=== PATIENT | male | born 1995 | race Hispanic/Latino ===

== ENCOUNTER 2017-07-14 21:20 | Inpatient (IN) | payer OTHER, SELFPAY ==
[2017-07-14 23:10] LABS: Base Excess-Venous -14.4 mmol/L (-30.0-30.0); Bicarbonate (HCO3v) 12.1 mmol/L (1.0-85.0); CO2 Tension (PvCO2) 30.1 mmHg (41.0-51.0); Calcium, Ionized 1.06 mmol/L (1.12-1.32); Hemoglobin - Calc 15.2 g/dL (12.0-18.0); O2 Tension (PvO2) 50.5 mmHg (35.0-45.0); Potassium 4.8 mmol/L (3.4-4.7); pH (Venous) 7.212 (7.35-7.45); vO2 Saturation-calc 78.2 % (0.0-100.0)
[2017-07-14 23:44] LABS: Band 4 % (5-11); Hemoglobin 14.9 g/dL (14.0-18.0); Lymphocytes 14 % (21-51); MDiff Complete? YES; Mean Corpuscular HGB CONC 35.1 g/dL (32.0-36.0); Mean Corpuscular Hemoglobin 32.4 pg (27.0-31.0); Mean Corpuscular Volume 92.4 fl (80.0-94.0); Mean Platelet Volume 8.7 fL (7.4-10.4); Monocytes 9 % (0-10); Neutrophil 73 % (42-75); PLT Morphology Comment Appears Adequate; Platelet Count 344 thou/uL (130-400); RBC Distribution Width 11.5 % (11.5-14.5); Red Blood Cell (RBC) Count 4.58 mill/uL (4.70-6.10); White Blood Cell (WBC) Count 20.1 thou/uL (4.8-10.8)
[2017-07-14] MEDS ORDERED: D5 1/2 NS w/20 mEq KCL 1,000 ML ONE (23:45)
--- NOTE | 2017-07-15 00:04 | PDOC.EVN ---
Event Note - Event Note Event Note: Attending H&P I personally evaluated the patient and discussed the management with Dr. Buck. I have reviewed he written H&P and it is repeated by me. I agree with the History, Examination, Assessment and Plan documented above with any addition or exceptions noted below. Mr Kennedy has known DM type I. He has been non complaint with his insulin regimen and drinking alcohol and using meth and cocaine. IV fluid resuscitation, Insulin, and electrolyte correction per protocol ordered. GI prophylaxis and DVT prophylaxis ordered. Zofran for nausea ordered.
[2017-07-15] MEDS: D5 1/2 NS w/20 mEq KCL 1,000 ML IV SCH ×2 (00:45→03:55)
[2017-07-15] MEDS ORDERED: CCU Electrolyte Replacement 1 EACH IVPB ONE (00:47)
[2017-07-15] MEDS ORDERED: D5 1/2 NS w/20 mEq KCL 1,000 ML IV PRN (00:47)
[2017-07-15] MEDS ORDERED: Sodium Chloride 0.9% 1,000 ML IV PRN ×4 (00:47)
[2017-07-15] MEDS ORDERED: NS 0.9% w/ 20 MEQ KCL 1,000 ML IV PRN ×2 (00:47)
[2017-07-15] MEDS ORDERED: Dextrose 5 %-0.45 % NaCl 1,000 ML IV PRN ×2 (00:47→06:27)
[2017-07-15] MEDS ORDERED: Ondansetron HCl/PF 4 MG/2 ML Vial IVP PRN (00:47)
[2017-07-15 00:51] VITALS: BMI 23.2
[2017-07-15] MEDS ORDERED: Potassium Chloride 20 MEQ TAB PO PRN (00:55)
[2017-07-15] MEDS ORDERED: Potassium Phosphate 15 MMOL in Sodium Chloride 0.9% 250 ML 250 ML IV PRN (00:55)
[2017-07-15] MEDS ORDERED: CCU ELECTROLYTE REPLACEMENT PROTOCOL FS PRN (00:55)
[2017-07-15] MEDS ORDERED: Potassium Chloride 40 MEQ in Premix Bag 1 BAG IVPB PRN (00:55)
[2017-07-15] MEDS ORDERED: Potassium Phosphate 12 MMOL in Sodium Chloride 0.9% 250 ML 250 ML IV PRN (00:55)
[2017-07-15] MEDS ORDERED: Magnesium 2 GM/NS 0.9% 100 ML 2 GM in Premix Bag 1 BAG IVPB PRN (00:55)
[2017-07-15] MEDS ORDERED: Magnesium Oxide 400 MG TAB PO PRN ×2 (00:55)
[2017-07-15] MEDS ORDERED: Potassium Chloride 40 MEQ in Sodium Chloride 0.9% 250 ML 250 ML IVPB PRN (00:55)
[2017-07-15] MEDS ORDERED: Potassium Phosphate 9 MMOL in Sodium Chloride 0.9% 100 ML IVPB PRN (00:55)
[2017-07-15 01:36] LABS: Anion Gap 17 mmol/L (10-20); BUN (Urea Nitrogen) 17 mg/dL (8.9-20.6); Calc. Creatinine Clearance 80 mL/min (70-130); Calcium 8.6 mg/dL (7.8-10.44); Carbon Dioxide 17 mmol/L (22-29); Chloride 105 mmol/L (98-107); Estimated GFR-MDRD 72; Glucose 243 mg/dL (70-105); Potassium 4.8 mmol/L (3.5-5.1); Sodium 134 mmol/L (136-145)
[2017-07-15 03:56] LABS: Lactic Acid 1.3 mmol/L (0.5-2.2)
[2017-07-15 03:59] LABS: Anion Gap 12 mmol/L (10-20); BUN (Urea Nitrogen) 16 mg/dL (8.9-20.6); Calc. Creatinine Clearance 90 mL/min (70-130); Calcium 8.7 mg/dL (7.8-10.44); Carbon Dioxide 19 mmol/L (22-29); Chloride 106 mmol/L (98-107); Estimated GFR-MDRD 82; Glucose 224 mg/dL (70-105); Potassium 4.1 mmol/L (3.5-5.1); Sodium 133 mmol/L (136-145)
--- NOTE | 2017-07-15 04:01 | HP-2 ---
TIME AND DATE OF SERVICE: 2315 hours on 07/14/2017. CODE STATUS: FULL CODE. PRIMARY CARE PHYSICIAN: Michelle scanlon. ATTENDING: Dr. Nance RESIDENT: Alberto Buck M.D. HISTORIAN: Patient. CHIEF COMPLAINT: Abdominal pain, nausea and vomiting. HISTORY OF PRESENT ILLNESS: Cabrera Kennedy is a 21-year-old male with past medical history of insulin-de pendent type 1 diabetes mellitus, who presents as a transfer from [facility] for diabetic ketoac idosis. Last night the patient was drinking alcohol with friends and today, at the [facility], his UDS was positive for methamphetamines and cocaine. The patient states that he did not knowingly take these drugs. He states that his friends must have put it in his beer. The patient did not admi nistered his insulin last night and he woke up with sharp epigastric pain this morning as well as alexia sea and vomiting. One of his friends took him to the [facility], where his blood glucose was 70 0. At that time, his pH was 7.06, pO2 was 122 and pCO2 was less than 19.4. His lactic acid was 4.3. CK was 96 and troponin less than 0.1. His UA was significant for ketones greater than 160. His in itial anion gap was 43. The patient states that he has not been checking his blood sugar over the 2 months or so because he lost his glucometer. In the ER, the patient received Novolin and D5 christopher f normal saline with KCl at 250 mL an hour. PAST MEDICAL HISTORY: Type 1 diabetes mellitus. PAST SURGICAL HISTORY: None. ALLERGIES: No known drug allergies. MEDICATIONS: 1. NovoLog 12 units subcu t.i.d. with meals. 2. Levemir 30 units subcu at night. FAMILY HISTORY: Noncontributory. SOCIAL HISTORY: The patient endorsed alcohol use, but denied knowingly taking any drugs and denied s moking. REVIEW OF SYSTEMS: Twelve point review of systems including general, eyes, ENT, respiratory, CV, GI, , skin, musculoskeletal, neuro and psych were all reviewed and were negative, unless otherwise sta jaycee in the HPI. The patient in addition endorsed blurry vision this morning. PHYSICAL EXAMINATION: VITAL SIGNS: Blood pressure 143/83, pulse 128, respiratory rate 16, temperature 99.6, pulse ox 99% o n room air, current weight 55.7 kilograms. GENERAL: The patient is alert and oriented x4, no acute distress, well-developed, well-nourished, an d appropriately interactive; however, he appears uncomfortable. HEENT: Pupils equal, round, reactive to light and accommodation. Extraocular muscles intact. Conju nctiva within normal limits; however, the sclerae was injected. ENT: Tympanic membranes pearly hua without bulging or erythema. Nasal mucosa and oropharynx within normal limits. NECK: Supple, without lymphadenopathy or thyromegaly. CARDIOVASCULAR: The patient was tachycardic, but no murmurs or gallops were noted. RESPIRATORY: Normal effort, no retractions. LUNG: Clear to auscultation bilaterally. SKIN: Warm and dry without cyanosis or lesions. ABDOMEN: Soft. There is epigastric tenderness to palpation, no rebound, no guarding. Bowel sounds normoactive. No masses or distention. EXTREMITIES: No clubbing, cyanosis or pitting edema. MUSCULOSKELETAL: Structure and tone within normal limits. Full range of motion. NEUROLOGIC: No focal deficits. Sensation within normal limits. PSYCHIATRIC: Appropriate, however, the patient did lack insight. LABORATORY DATA: Performed at [facility], lactic acid 4.3. White blood cell count 20.1, hemoglob in 14.9, hematocrit 42.3, platelets 344. VBG showed pH of 7.212 and EKG showed sinus tachycardia wit h no T-wave abnormalities. ASSESSMENT AND PLAN: Cabrera Kennedy is a 21-year-old male with past medical history of insulin-dependent type 1 diabetes mellitus, who presented in diabetic ketoacidosis. 1. Diabetic ketoacidosis. Admit to CU. Cause likely secondary to medication noncompliance second chad to binge drinking and drug use. We will continue diabetic ketoacidosis protocol and transition t o subcutaneous home insulin regimen once blood sugars are less than 200. Anion gap is less than 12 a nd pH is greater than 7.3. We will continue to monitor electrolytes and anion gap as well as Accu- eks per protocol. 2. Lactic acidosis secondary to #1. Trend lactic acid. 3. Nausea and vomiting. IV Zofran. 4. Diet: N.p.o. 5. Activity: Ad [place]. 6. Code status: FULL CODE. DISPOSITION AND LENGTH OF HOSPITAL STAY: 2 days. Symptomatic medication will be provided. History, physical exam as well as management discussed with Dr. Nance.
[2017-07-15 05:43] LABS: Actual Bicarbonate (HCO3v) 21 mEq/L (22-26); Base Excess -3.1 mEq/L (0 (+/- 2.5)); Hematocrit-VBG 40.3 % (39-49); Hemoglobin (Hb) 13.3 g/dL (13.2-17.3); Potassium - ABG Lab 3.6 mmol/L (3.70-5.30); Sodium 135.1 mmol/L (133-146); pH (venous) 7.39 (7.35-7.45)
[2017-07-15 05:44] LABS: Calcium, Ionized 1.13 mmol/L (1.16-1.32); Chloride (ABG LAB) 103 mmol/L (98-106)
[2017-07-15] MEDS ORDERED: Insulin Detemir 100 UNITS/ML 15 UNITS in Pre-Filled Syringe 1 EACH SC SCH ×2 (06:30→21:00)
[2017-07-15] MEDS ORDERED: Lidocaine 2% Viscous Solution 10 ML, Aluminum & Magnesium Hydroxide 30 ML SSW SCH ×2 (06:30)
[2017-07-15] MEDS ORDERED: Pantoprazole 40 MG VIAL IVP SCH (06:30)
--- NOTE | 2017-07-15 07:55 | PDOC.FM ---
- Subjective Subjective: Patient reports doing better overnight regarding dizziness. Denies N/V, SOB. Has been having right sided chest pain that is worse with drinking water and palpation. - Objective MAR Reviewed: Yes Vital Signs & Weight: Vital Signs (12 hours) Temp Pulse Resp BP Pulse Ox 07/15/17 07:36 98.7 F 91 15 100 07/15/17 07:00 98.7 F 91 15 111/65 100 07/15/17 04:00 98.1 F 99 18 116/60 100 07/15/17 02:00 99.3 F 112 H 18 99 07/15/17 00:50 99.3 F 112 H 18 116/60 100 Weight Weight 61.371 kg I&O: 07/14/17 07/15/17 07/16/17 06:59 06:59 06:59 Intake Total 1330 Output Total 400 Balance 930 Result Diagrams: 07/14/17 22:50 07/15/17 03:23 <Shahid Rod M - Last Filed: 07/15/17 07:52> - Objective Vital Signs & Weight: Vital Signs (12 hours) Temp Pulse Resp BP Pulse Ox 07/15/17 11:00 98.4 F 109 H 15 111/63 99 07/15/17 07:36 98.7 F 91 15 100 07/15/17 07:00 98.7 F 91 15 111/65 100 07/15/17 04:00 98.1 F 99 18 116/60 100 07/15/17 02:00 99.3 F 112 H 18 99 Weight Weight 61.371 kg I&O: 07/14/17 07/15/17 07/16/17 06:59 06:59 06:59 Intake Total 1330 240 Output Total 400 Balance 930 240 Result Diagrams: 07/14/17 22:50 07/15/17 03:23 <Patrick Hou - Last Filed: 07/15/17 12:56> Phys Exam - Physical Examination Constitutional: NAD HEENT: moist MMs Neck: full ROM Respiratory: no wheezing, clear to auscultation bilateral Cardiovascular: RRR, no significant murmur Gastrointestinal: soft diffusely tender to palpation Musculoskeletal: no edema, pulses present Neurological: normal sensation, moves all 4 limbs Psychiatric: normal affect, A&O x 3 <Shahid Rod - Last Filed: 07/15/17 07:52> Dx/Plan (1) Diabetic ketoacidosis Code(s): E13.10 - OTH DIABETES MELLITUS WITH KETOACIDOSIS WITHOUT COMA Status : Acute Plan: pH improved to normal range, anion gap currently 8 accuchecks: 155, 128, 129 ok to advance diet as tolerated and continue to monitor labs if morning labs continue to improve, we can space out labs and start home regimen to confirm patient is stable on regimen also possibly transfer to floor later today vs tomorrow morning (2) Polysubstance abuse Code(s): F19.10 - OTHER PSYCHOACTIVE SUBSTANCE ABUSE, UNCOMPLICATED Status: Acute Plan: counseled on discontinued use (3) Alcohol abuse Code(s): F10.10 - ALCOHOL ABUSE, UNCOMPLICATED Status: Acute Plan: counseled on cessation (4) Lactic acidosis Code(s): E87.2 - ACIDOSIS Status: Resolved Plan: resolved, continue to monitor (5) Diabetes mellitus type 1 Status: Acute Plan: home regimen: levemir 30u qHS and novolog 12u tid-wm counseled on compliance of medications (6) Noncompliance with medication regimen Code(s): Z91.14 - PATIENT'S OTHER NONCOMPLIANCE WITH MEDICATION REGIMEN Status : Acute <Shahid Rod - Last Filed: 07/15/17 07:52> Attending Addendum - Attending Addendum I personally evaluated the patient and discussed the management with Dr. Rod. I agree with and repeated the History, Examination, Assessment and Plan documented above with any addition or exceptions noted below. Pt doing ok this. Some stomach discomfort but no n/v/f/c/cp/sob. RRR s M CTAB s w/r/r/increased WOB BS+, NTTP on my exam Gap closed, transition to PO + SQ insulin DVT/GI ppx <Patrick Hou - Last Filed: 07/15/17 12:56>
[2017-07-15] MEDS: HumaLOG 300 UNITS/3 ML VIAL SC SCH ×3 (08:12→17:35)
[2017-07-15 09:21] LABS: Hemoglobin A1c 10.3 % (4.0-6.0)
[2017-07-15] MEDS ORDERED: Acetaminophen 325 MG TAB PO PRN (11:19)
[2017-07-15 16:27] LABS: Anion Gap 12 mmol/L (10-20); BUN (Urea Nitrogen) 10 mg/dL (8.9-20.6); Calc. Creatinine Clearance 126 mL/min (70-130); Calcium 8.3 mg/dL (7.8-10.44); Carbon Dioxide 19 mmol/L (22-29); Chloride 107 mmol/L (98-107); Estimated GFR-MDRD Greater than 90; Glucose 77 mg/dL (70-105); Potassium 3.6 mmol/L (3.5-5.1); Sodium 134 mmol/L (136-145)
--- NOTE | 2017-07-15 21:13 | CON ---
DATE OF CONSULTATION: 07/15/2017 Mr. Kennedy is a 21-year-old male. He said he stopped taking his insulin so he could democrat. He presented and was admitted early this morning. His complaints were nausea and vomiting. Multiple drugs positive on his drug screen. He is extremely hyperglycemic and volume contracted when he was admitted. He says he is dramatically better. PAST MEDICAL HISTORY: Remarkable for type 1 diabetes. ALLERGIES: He has no drug allergies. He is on no medicines other than insulin. REVIEW OF SYSTEMS: 10-point review of systems otherwise negative. FAMILY HISTORY: Negative for lung disease at an early age. SOCIAL HISTORY: Non-smoker, nondrinker. He was drinking. Denies using cocaine or amphetamines. They were on his drug screen, says somebody must have put them in his beer. Twelve point review of systems otherwise negative. PHYSICAL EXAMINATION: GENERAL: In no distress, lying flat in bed. He is afebrile all day today. VITAL SIGNS: His heart rate is in the 90s, respiratory rate is in the teens, oximetry is 99% on room air, blood pressure 114/52. HEENT: Pupils are equal. Sclerae is anicteric. Extraocular movements are full. NECK: Supple. No lymphadenopathy. LUNGS: Clear. HEART: Regular rhythm. S1 and S2 are normal. ABDOMEN: Soft and nontender. EXTREMITIES: Without clubbing, cyanosis, or edema. LABORATORY DATA: White count 20, hemoglobin 14.9, platelets 344. Sodium 133, potassium 4.1, chloride 106, bicarb 19, BUN 16, creatinine 1.1. Blood gas done at 10:52 last night 7.21, CO2 of 30, pO2 of 50. IMPRESSION: 1. Diabetic ketoacidosis secondary to medical noncompliance, resolving. 2. Alcohol use. 3. Drug use. I explained to him that he will live very long if he continues on this path and it is imperative that he take care of himself and not drink or abuse drugs in the setting of type 1 diabetes. His family was there for this conversation. This is a 50-minute consult, greater than 50% of the time was spent coordinating care on the Unit. RITU
[2017-07-16 04:35] LABS: Anion Gap 9 mmol/L (10-20); BUN (Urea Nitrogen) 8 mg/dL (8.9-20.6); Calc. Creatinine Clearance 139 mL/min (70-130); Calcium 8.6 mg/dL (7.8-10.44); Carbon Dioxide 26 mmol/L (22-29); Chloride 104 mmol/L (98-107); Estimated GFR-MDRD Greater than 90; Glucose 143 mg/dL (70-105); Potassium 3.4 mmol/L (3.5-5.1); Sodium 136 mmol/L (136-145)
[2017-07-16] MEDS ORDERED: Potassium Chloride 20 MEQ TAB PO SCH (07:15)
--- NOTE | 2017-07-16 07:58 | PDOC.FM ---
- Subjective Subjective: Patient reports doing much better this morning. Abd pain has improved. No CP, SOB, N/V. Orders were put in yesterday to transfer to medical floor, awaiting bed. As monitors were being taken off, there was concern for aflutter so EKG was ordered which showed sinus tach. - Objective MAR Reviewed: Yes Vital Signs & Weight: Vital Signs (12 hours) Temp Pulse Resp BP Pulse Ox 07/16/17 07:43 98.0 F 75 20 119/70 100 07/16/17 07:35 98.0 F 89 16 100 07/16/17 04:00 98.0 F 89 16 118/75 100 07/16/17 00:00 98.4 F 80 16 124/66 100 07/15/17 20:00 97.7 F 104 H 16 100 Weight Weight 61.371 kg I&O: 07/15/17 07/16/17 07/17/17 06:59 06:59 06:59 Intake Total 1330 1080 Output Total 400 850 Balance 930 230 Result Diagrams: 07/14/17 22:50 07/16/17 03:59 <Shahid Rod - Last Filed: 07/16/17 07:55> - Objective Vital Signs & Weight: Vital Signs (12 hours) Temp Pulse Resp BP Pulse Ox 07/16/17 12:00 98.5 F 94 20 131/78 96 07/16/17 07:43 98.0 F 75 20 119/70 100 07/16/17 07:35 98.0 F 89 16 100 07/16/17 04:00 98.0 F 89 16 118/75 100 Weight Weight 61.371 kg I&O: 07/15/17 07/16/17 07/17/17 06:59 06:59 06:59 Intake Total 1330 1080 240 Output Total 400 850 Balance 930 230 240 Result Diagrams: 07/16/17 03:59 07/16/17 11:49 <Patrick Hou - Last Filed: 07/16/17 13:32> Phys Exam - Physical Examination Constitutional: NAD HEENT: PERRLA, moist MMs Neck: supple, full ROM Respiratory: no wheezing, clear to auscultation bilateral Cardiovascular: RRR, no significant murmur Gastrointestinal: soft, positive bowel sounds Musculoskeletal: no edema, pulses present Neurological: normal sensation, moves all 4 limbs Psychiatric: normal affect, A&O x 3 Skin: no rash, normal turgor <Shahid Rod - Last Filed: 07/16/17 07:55> Dx/Plan (1) Diabetic ketoacidosis Code(s): E13.10 - OTH DIABETES MELLITUS WITH KETOACIDOSIS WITHOUT COMA Status : Acute Plan: gap closed yesterday continue with consistent carb diet (2) Polysubstance abuse Code(s): F19.10 - OTHER PSYCHOACTIVE SUBSTANCE ABUSE, UNCOMPLICATED Status: Acute Plan: counseled on discontinued use (3) Alcohol abuse Code(s): F10.10 - ALCOHOL ABUSE, UNCOMPLICATED Status: Acute Plan: counseled on cessation (4) Lactic acidosis Code(s): E87.2 - ACIDOSIS Status: Resolved Plan: resolved, continue to monitor (5) Diabetes mellitus type 1 Status: Acute Plan: home regimen: levemir 30u qHS and novolog 12u tid-wm counseled on compliance of medications titrating basal and mealtime insulin as he had some episodes yesterday where glucose was in the 70s (6) Noncompliance with medication regimen Code(s): Z91.14 - PATIENT'S OTHER NONCOMPLIANCE WITH MEDICATION REGIMEN Status : Acute - Plan Plan: likely ok to d/c later today <Shahid Rod - Last Filed: 07/16/17 07:55> Attending Addendum - Attending Addendum I personally evaluated the patient and discussed the management with Dr. Rod. I agree with and repeated the History, Examination, Assessment and Plan documented above with any addition or exceptions noted below. Gap closed, symptoms resolved, tolerating PO. Adjust insulin for slight hypoglycemia. Follow up with PCP. Warnings discussed and patient voices understanding, including return precautions. <Patrick Hou - Last Filed: 07/16/17 13:32>
[2017-07-16] MEDS ORDERED: Lidocaine 2% Viscous Solution 20 ML, Aluminum & Magnesium Hydroxide 30 ML, Donnatal Eli... SSW SCH ×3 (08:00)
[2017-07-16 08:15] LABS: #Eosinphils 0.1 thou/uL (0.0-0.7); #Lymphocytes 2.4 thou/uL (1.20-3.40); #Monocytes 0.7 thou/uL (0.11-0.59); #Neutrophils 3.8 thou/uL (1.40-6.50); %Basophils 0.6 % (0.0-1.0); %Eosinophils 1.3 % (0.0-10.0); %Lymphocytes 33.8 % (21.0-51.0); %Neutrophils 54.2 % (42.0-75.0); Mean Corpuscular HGB CONC 33.3 g/dL (32.0-36.0); Mean Corpuscular Hemoglobin 31.8 pg (27.0-31.0); Mean Corpuscular Volume 95.3 fl (80.0-94.0); Mean Platelet Volume 8.7 fL (7.4-10.4); Platelet Count 250 thou/uL (130-400); RBC Distribution Width 11.8 % (11.5-14.5); White Blood Cell (WBC) Count 7.1 thou/uL (4.8-10.8)
[2017-07-16] MEDS: HumaLOG 300 UNITS/3 ML VIAL SC SCH ×2 (08:35→12:22)
[2017-07-16] MEDS ORDERED: Insulin Detemir 100 UNITS/ML 15 UNITS in Pre-Filled Syringe 1 EACH SC SCH (09:00)
[2017-07-16 12:04] VITALS: BP 131/78; TEMP 98.5
[2017-07-16 12:26] LABS: Potassium 3.6 mmol/L (3.5-5.1)
--- NOTE | 2017-07-16 20:36 | PRG ---
DATE OF SERVICE: 07/16/2017 SUBJECTIVE: Cabrera Kennedy is stable overnight. He has had no more nausea and vomiting since he feels b ack to normal. OBJECTIVE: VITAL SIGNS: His vital signs are stable. LUNGS: His lungs are clear. HEART: Regular rhythm. ABDOMEN: Nontender. IMPRESSION AND PLAN: Diabetic ketoacidosis and hyperglycemia secondary to "partying" and noncomplian ce with insulin. I have again discussed the downstream implications. I have explained to him that hussain norton would not have friends partying with him when he has no legs or he is on dialysis. Hopefully, I ma de my point. He will be discharged home today.
--- NOTE | 2017-07-17 06:54 | DIS-2 ---
DATE OF ADMISSION: 07/15/2017 DATE OF DISCHARGE: 07/16/2017 RESIDENT: Shahid Rod D.O. ADMITTING ATTENDING: Mt Nance M.D. DISCHARGE ATTENDING: Patrick Hou MD CONSULTS: None. PROCEDURES: None. PRIMARY DIAGNOSES: 1. Diabetic ketoacidosis. 2. Type 1 diabetes. 3. Lactic acidosis. SECONDARY DIAGNOSES: 1. Polysubstance abuse. 2. Alcohol abuse. 3. Noncompliance with medication regimen. DISCHARGE MEDICATIONS: 1. NovoLog 8 units subcutaneous t.i.d. with meals. 2. Levemir 30 units subcutaneous at bedtime. DISCONTINUED MEDICATIONS: None. HISTORY OF PRESENT ILLNESS AND HOSPITAL COURSE: The patient is a 21-year-old male, who presented to the ER with nausea and vomiting after a 24-hour history of non-administration of insulin as well as a night over partying, which patient endorsed alcohol. However, patient's UDS was positive for metham phetamine as well as cocaine, which patient denied. At outside ER, the patient presented at [facility]. The patient had number of lab abnormalities including pH of 7.06, pO2 of 122, and pCO2 of less than 19.4 as well as a gap of 43 and blood sugar greater than 700. Patient was started on insulin d rip and fluids. Patient was transferred to [facility] for further care. Patient at [facility] was found to have white count of 20.1. VBG of 7.21/30.1/50.5 and potassium of 4.1, sodium of 133 , chloride of 106, carbon dioxide of 19, for an anion gap of 8, glucose at that time was 224, so pyeton ent had a mild pseudohyponatremia at that time. Creatinine at that time was 1.11. Fluid resuscitati on was continued and lactic acid improved to 1.3 soon after admission. Earlier that morning, patient 's nausea and vomiting had stopped and patient had blood sugars in the 120s range; therefore, patient was restarted on a p.o. diet and advanced as tolerated. Accu-Cheks were continued throughout the da y and insulin was titrated accordingly. On date of discharge, patient's potassium was 3.4 and was re placed to increase up to 3.6. Also, patient reports that he did not take insulin the day before presentation; however, he reports c omplaints otherwise and checkups every 3 months at the same [facility]. Patient reports that he has been complaint however hemoglobin A1c was 10.3. Therefore, patient was counseled on appropriate use and checking of blood sugar levels as well as keeping a log to take 2 appointments. DISPOSITION: Stable. DISCHARGE INSTRUCTIONS: 1. Location: Home. 2. Diet: Consistent carb, diabetic diet. 3. Activity: As tolerated. 4. Followup: With [facility] in the next 7 days.
== END 2017-07-16 13:09 | disposition home or self-care (01) | DRG 638 ==
LOC: ERS 21:20 → IMCU/EMU 07-15 00:39
PROVIDERS: ADMIT Family Medicine; ATTEND Family Medicine
DX: E10.10 Type 1 diabetes mellitus with ketoacidosis without coma (principal); E87.2 Acidosis; F14.10 Cocaine abuse, uncomplicated; F15.10 Other stimulant abuse, uncomplicated; Z79.4 Long term (current) use of insulin; Z91.14 Patient's other noncompliance with medication regimen; F10.10 Alcohol abuse, uncomplicated
CPT/HCPCS: 36415; 36416; 80048; 82330; 82435; 82803; 82805; 83036; 83605; 83690; 84132; 84295; 85025; 93005; 93010; 94760; 96365; 96366; 96368; C9113; J1815; J7050

== ENCOUNTER 2020-07-18 16:44 | Inpatient (IN) | payer OTHER, SELFPAY ==
[2020-07-18] MEDS ORDERED: INSULIN REGULAR IN 0.9 % NACL 100 UNIT/100 ML BAG ONE (18:07)
[2020-07-18] MEDS ORDERED: Ketamine 50 MG/ML (10ML VIAL) ONE (18:15)
[2020-07-18 18:29] LABS: ALT (SGPT) 71 U/L (8-55); AST (SGOT) 28 U/L (5-34); Albumin 4.6 g/dL (3.5-5.0); Alkaline Phosphatase 111 U/L (40-110); Anion Gap 24 mmol/L (10-20); BUN (Urea Nitrogen) 20 mg/dL (8.9-20.6); Bilirubin, Total 0.7 mg/dL (0.2-1.2); Calc. Creatinine Clearance 0 mL/min (70-130); Calcium 9.2 mg/dL (7.8-10.44); Carbon Dioxide 10 mmol/L (22-29); Chloride 110 mmol/L (98-107); Globulin 3.4 g/dL (2.4-3.5); Glucose 218 mg/dL (70-105); Magnesium 2.4 mg/dL (1.6-2.6); Phosphorus 1.9 mg/dL (2.3-4.7); Potassium 4.9 mmol/L (3.5-5.1); Sodium 139 mmol/L (136-145)
[2020-07-18] MEDS ORDERED: D5 1/2 NS w/20 mEq KCL 1,000 ML IV SCH (19:15)
[2020-07-18] MEDS ORDERED: Dextrose 50% Abboject 50 ML SYRINGE ONE ×2 (19:25→20:04)
[2020-07-18] MEDS ORDERED: D5 1/2 NS w/20 mEq KCL 1,000 ML ONE ×2 (20:06→22:22)
[2020-07-18] MEDS ORDERED: NS 0.9% w/ 20 MEQ KCL 1,000 ML IV PRN ×2 (20:48)
[2020-07-18] MEDS ORDERED: Sodium Chloride 0.9% 1,000 ML IV PRN ×4 (20:48)
[2020-07-18] MEDS ORDERED: Electrolyte Replacement Protocol 1 EACH IVPB ONE (20:48)
[2020-07-18] MEDS ORDERED: Dextrose 5 %-0.45 % NaCl 1,000 ML IV PRN (20:48)
[2020-07-18] MEDS ORDERED: Ondansetron PF 4 MG/2 ML Vial IVP PRN (20:56)
[2020-07-18] MEDS ORDERED: HUMULIN R 100 UNITS in Sodium Chloride 0.9% 100 ML IVPB SCH (21:00)
[2020-07-18] MEDS ORDERED: Electrolyte Replacement Protocol 1 EACH FS SCH (21:00)
--- NOTE | 2020-07-18 21:06 | PDOC.HHP ---
Hospitalist HPI Nausea and vomiting History of Present Illness: This a 24-year-old male patient with a history of type 1 diabetes mellitus Who presents with nausea and vomiting. Patient notes that he had a drink of tequila a day after he started having nausea and vomiting. He vomited several times[facility]ed at [facility]. There history glucose was 630. He was given 2 g cefepime 10 units insulin 4 mg Zofran and started on 2 L normal saline. He was transferred here for higher level care. At presentation his vitals were BP 142/95, pulse 118, respiratory 30 saturation 97% on room air. Temperature was 99.1. Labs showed creatinine of 1.69, bicarb of 10 anion gap 19. CBC done at [facility] cannot pull through on account of downtime over there. Chest x-ray showed dense focal opacity in left base suggest left lower lobe consolidation/collapse. Less also elevation of the left hemidiaphragm. Short- term follow-up reimaging advised. He was started on DKA protocol Hospitalist team consulted for admission Allergies/Adverse Reactions: Allergy/AdvReac Type Severity Reaction Status Date / Time No Known Drug Allergies Allergy Verified 07/14/17 22:09 Home Medications: Medication Instructions Recorded Confirmed Type Levemir Flexpen [Levemir FlexPen] 30 units SC HS 07/15/17 07/15/17 History Insulin Aspart [NovoLOG FlexPen] 8 units SC TID-WM #0 07/16/17 07/15/17 Rx Past History: PMHx: Diabetes mellitus PSHx: None FHx: None Social: Lives with family. Occasional alcohol drinking. No smoke or illicit drug use Hospitalist HPI ROS Constitutional: reports: weakness, malaise. denies: fever, chills, sweats Respiratory: reports: cough, dry. denies: shortness of breath, hemoptysis, SOB with excertion Cardiovascular: denies: chest pain, palpitations, orthopnea, paroxysmal noc. dyspnea Gastrointestinal: denies: nausea, vomiting, abdominal pain, diarrhea Genitourinary: reports: frequency. denies: dysuria, incontinence, hematuria Neurological: denies: weakness, numbness, incoordination, change in speech All other systems reviewed; all pertinent +/- noted in HPI/Subj Hospitalist Exam General Appearance: awake alert Eye: PERRL, anicteric sclera ENT: normocephalic atraumatic Heart: RRR, no murmur, no gallops, no rubs Respiratory: CTAB, no wheezes, no rales, no ronchi Gastrointestinal: soft, non-tender, non-distended, normal bowel sounds Extremities: no cyanosis, no clubbing, no edema Skin: normal turgor Neurological: cranial nerve grossly intact, no weakness, no focal deficits Psychiatric: normal affect, normal behavior, A&O x 3 Hospitalist Results Result Diagrams: 07/18/20 17:15 Lab results: Laboratory Last Values Sodium 139 mmol/L (136-145) 07/18/20 17:15 Potassium 4.9 mmol/L (3.5-5.1) 07/18/20 17:15 Chloride 110 mmol/L (98-107) H 07/18/20 17:15 Carbon Dioxide 10 mmol/L (22-29) L 07/18/20 17:15 Anion Gap 24 mmol/L (10-20) H 07/18/20 17:15 BUN 20 mg/dL (8.9-20.6) 07/18/20 17:15 Creatinine 1.69 mg/dL (0.7-1.3) H 07/18/20 17:15 Estimated GFR (MDRD) 49 07/18/20 17:15 Glucose 218 mg/dL (70-105) H 07/18/20 17:15 POC Glucose 207 mg/dL (70-100) H 07/18/20 19:56 Calcium 9.2 mg/dL (7.8-10.44) 07/18/20 17:15 Phosphorus 1.9 mg/dL (2.3-4.7) L 07/18/20 17:15 Magnesium 2.4 mg/dL (1.6-2.6) 07/18/20 17:15 Total Bilirubin 0.7 mg/dL (0.2-1.2) 07/18/20 17:15 AST 28 U/L (5-34) 07/18/20 17:15 ALT 71 U/L (8-55) H 07/18/20 17:15 Alkaline Phosphatase 111 U/L (40-110) H 07/18/20 17:15 Serum Total Protein 8.0 g/dL (6.0-8.3) 07/18/20 17:15 Albumin 4.6 g/dL (3.5-5.0) 07/18/20 17:15 Globulin 3.4 g/dL (2.4-3.5) 07/18/20 17:15 Albumin/Globulin Ratio 1.4 g/dL (1.2-2.2) 07/18/20 17:15 Hospitalist H&P A/P Plan: 34-year-old male patient history of diabetes mellitus presenting with DKA probably triggered by pneumonia. DKA Likely triggered pneumonia/alcohol consumption Continue on DKA protocol Monitor magnesium phosphorus Transition as needed Monitoring IMCU. Pneumonia Received cefepime prior to transfer We will continue once ceftriaxone/azithromycin Will require follow-up chest x-ray on discharge. Nausea and vomiting Plan ondansetron HUGO Creatinine elevated to 1.6 Probably prerenalfrom nausea vomiting Continue hydration DKA protocol BMP in a.m. Avoid nephrotoxic agents Alcohol abuse Patient apparently abuses alcoholnoted on last admission. Counseled on cessation. VT prophylaxisLovenox Procedures
[2020-07-18] MEDS ORDERED: Ondansetron ODT 4 MG TAB PO PRN (21:17)
[2020-07-18] MEDS ORDERED: Insulin Regular 300 UNITS/3 ML VIAL ONE (22:08)
[2020-07-18 22:31] LABS: #Lymphocytes 0.9 thou/uL (1.20-3.40); #Monocytes 0.9 thou/uL (0.11-0.59); #Neutrophils 9.8 thou/uL (1.40-6.50); %Basophils 0.3 % (0.0-1.0); %Lymphocytes 7.4 % (21.0-51.0); %Monocytes 7.9 % (0.0-10.0); %Neutrophils 84.4 % (42.0-75.0); Hemoglobin 15.2 g/dL (14.0-18.0); Mean Corpuscular Hemoglobin 31.2 pg (27.0-31.0); Mean Corpuscular Volume 91.8 fL (78.0-98.0); Mean Platelet Volume 9.3 fL (7.4-10.4); Platelet Count 244 thou/uL (130-400); RBC Distribution Width 11.9 % (11.5-14.5); Red Blood Cell (RBC) Count 4.88 mill/uL (4.70-6.10); White Blood Cell (WBC) Count 11.6 thou/uL (4.8-10.8)
[2020-07-18 22:49] LABS: Anion Gap 21 mmol/L (10-20); BUN (Urea Nitrogen) 17 mg/dL (8.9-20.6); Calc. Creatinine Clearance 0 mL/min (70-130); Calcium 8.3 mg/dL (7.8-10.44); Chloride 107 mmol/L (98-107); Glucose 423 mg/dL (70-105); Magnesium 1.8 mg/dL (1.6-2.6); Potassium 4.6 mmol/L (3.5-5.1); Sodium 131 mmol/L (136-145)
[2020-07-18 22:54] LABS: Carbon Dioxide 8 mmol/L (22-29)
[2020-07-18] MEDS ORDERED: cefTRIAXone\\ROCEPHIN 1 GM in Sodium Chloride 0.9% 100 ML IVPB SCH (23:00)
[2020-07-18] MEDS ORDERED: Azithromycin 500 MG in Sodium Chloride 0.9% 250 ML 250 ML IVPB SCH (23:59)
[2020-07-19 00:13] LABS: Phosphorus 1.4 mg/dL (2.3-4.7)
[2020-07-19] MEDS: D5 1/2 NS w/20 mEq KCL 1,000 ML IV PRN ×2 (00:41→04:35)
[2020-07-19] MEDS ORDERED: Magnesium 2 GM/50 ML 2 GM in Premix Bag 1 BAG IVPB SCH (00:45)
[2020-07-19] MEDS: PHOS-NAK 1 PKT PACK PO SCH ×4 (01:00→11:53)
[2020-07-19 01:48] LABS: Anion Gap 13 mmol/L (10-20); BUN (Urea Nitrogen) 13 mg/dL (8.9-20.6); Calc. Creatinine Clearance 73 mL/min (70-130); Calcium 8.2 mg/dL (7.8-10.44); Carbon Dioxide 13 mmol/L (22-29); Chloride 108 mmol/L (98-107); Glucose 315 mg/dL (70-105); Potassium 3.7 mmol/L (3.5-5.1); Sodium 130 mmol/L (136-145)
[2020-07-19 03:52] LABS: #Lymphocytes 1.8 thou/uL (1.20-3.40); #Monocytes 1.3 thou/uL (0.11-0.59); #Neutrophils 7.9 thou/uL (1.40-6.50); %Basophils 0.2 % (0.0-1.0); %Lymphocytes 16.3 % (21.0-51.0); %Neutrophils 71.5 % (42.0-75.0); Hemoglobin 14.8 g/dL (14.0-18.0); Mean Corpuscular HGB CONC 34.7 g/dL (32.0-36.0); Mean Corpuscular Hemoglobin 31.2 pg (27.0-31.0); Mean Corpuscular Volume 89.9 fL (78.0-98.0); Mean Platelet Volume 8.7 fL (7.4-10.4); Platelet Count 224 thou/uL (130-400); RBC Distribution Width 11.9 % (11.5-14.5); Red Blood Cell (RBC) Count 4.74 mill/uL (4.70-6.10); White Blood Cell (WBC) Count 11.1 thou/uL (4.8-10.8)
[2020-07-19 04:13] LABS: Anion Gap 11 mmol/L (10-20); BUN (Urea Nitrogen) 10 mg/dL (8.9-20.6); Calc. Creatinine Clearance 85 mL/min (70-130); Calcium 8.4 mg/dL (7.8-10.44); Carbon Dioxide 16 mmol/L (22-29); Chloride 108 mmol/L (98-107); Glucose 196 mg/dL (70-105); Potassium 3.5 mmol/L (3.5-5.1); Sodium 131 mmol/L (136-145)
[2020-07-19 05:13] VITALS: BMI 139.1
[2020-07-19 06:29] LABS: Magnesium 2.2 mg/dL (1.6-2.6); Phosphorus Less than 1.0 mg/dL (2.3-4.7)
[2020-07-19] MEDS ORDERED: Potassium Phosphate 22 MMOL in Sodium Chloride 0.9% 250 ML 250 ML IVPB SCH (06:45)
[2020-07-19] MEDS ORDERED: Dextrose 50% Abboject 50 ML SYRINGE SLOW IVP PRN (07:41)
[2020-07-19] MEDS ORDERED: Dextrose 5% in Water 1,000 ML IV PRN (07:41)
[2020-07-19] MEDS ORDERED: Insulin Glargine 15 UNITS in Pre-Filled Syringe 1 EACH SC SCH (07:45)
[2020-07-19] MEDS: Potassium Chloride 20 MEQ in Premix Bag 1 BAG IVPB SCH ×2 (07:49→14:28)
[2020-07-19] MEDS: Thiamine 100 MG TAB PO SCH (08:51)
[2020-07-19] MEDS: Multivit, Therapeutic 1 TAB PO SCH (08:51)
[2020-07-19] MEDS: Folic Acid 1 MG TAB PO SCH (08:52)
[2020-07-19] MEDS: 1/2 NS w/KCL 20 mEq 1,000 ML IV SCH ×3 (08:52→21:21)
[2020-07-19] MEDS ORDERED: Enoxaparin Sodium 40 MG/0.4 ML SYRINGE SC SCH ×2 (09:00→21:00)
[2020-07-19] MEDS: Insulin Regular 300 UNITS/3 ML VIAL SC PRN ×4 (09:00→21:13)
[2020-07-19] MEDS ORDERED: FLU VACC QS2020-21(6MOS UP)/PF 60 MCG/0.5 ML SYRINGE IM ONE (09:00)
[2020-07-19] MEDS ORDERED: Acetaminophen 325 MG TAB PO PRN (09:20)
[2020-07-19] MEDS ORDERED: traMADol HCl 50 MG TAB PO PRN (09:21)
--- NOTE | 2020-07-19 10:27 | RAD ---
XR Chest Pa Lat STANDARD HISTORY: Abnormality noted on portable chest exam done yesterday. COMPARISON: Chest study of 07/18/[address] examination of 11/01/2012. FINDINGS: Size is within normal limits. The density in the left base is related to the elevated left hemidiaphragm. No mass is identified. No infiltrative lung process. IMPRESSION: The density in the left base is related to an elevated left hemidiaphragm there is no ass ociated consolidation or mass.
[2020-07-19] MEDS ORDERED: Mag-Al 1200 mg/1200 mg/30 ML UDCUP PO PRN (11:13)
[2020-07-19] MEDS ORDERED: Calcium Carbonate 500 MG ChewTAB PO PRN (11:13)
[2020-07-19] MEDS: pyridOXINE 50 MG (B6) TAB PO SCH (11:53)
--- NOTE | 2020-07-19 15:28 | PDOC.HOSPP ---
- Subjective Encounter Date: 07/19/20 Encounter Time: 09:00 Subjective: Patient seen and examined for diabetic ketoacidosis. Denies any nausea or vomiting. Symptomatically feels much better. - Objective Vital Signs & Weight: Vital Signs (12 hours) Temp Pulse Resp BP Pulse Ox 07/19/20 11:58 98.6 F 100 20 145/96 H 100 07/19/20 08:00 99.6 F 100 Weight Weight 137 lb 12.623 oz Most Recent Monitor Data Heart Rate from ECG 109 NIBP 142/87 NIBP BP-Mean 105 Respiration from ECG 31 SpO2 100 I&O: 07/18/20 07/19/20 07/20/20 06:59 06:59 06:59 Intake Total 3895.7 1592 Output Total 1600 0 Balance 2295.7 1592 Result Diagrams: 07/19/20 03:23 07/19/20 03:23 Additional Labs: Accuchecks 07/19/20 07/19/20 07/19/20 12:01 07:24 06:38 POC Glucose 222 H 158 H 140 H 07/19/20 07/19/20 07/19/20 05:45 04:41 03:26 POC Glucose 127 H 150 H 184 H 07/19/20 07/19/20 07/19/20 02:43 01:59 00:49 POC Glucose 211 H 236 H 318 H 07/18/20 07/18/20 07/18/20 23:43 22:04 21:14 POC Glucose 315 H 373 H 324 H 07/18/20 07/18/20 19:56 18:38 POC Glucose 207 H 123 H Abnormal Lab Results - Last 48 hrs 07/18/20 17:15: Chloride 110 H, Carbon Dioxide 10 L, Anion Gap 24 H, Creatinine 1.69 H, Phosphorus 1.9 L, ALT 71 H, Alkaline Phosphatase 111 H 07/18/20 22:04: WBC 11.6 H, MCH 31.2 H, Neutrophils % 84.4 H, Lymphocytes % 7.4 L, Neutrophils # 9.8 H, Lymphocytes # 0.9 L, Monocytes # 0.9 H 07/18/20 22:09: Sodium 131 L, Carbon Dioxide 8 L*, Anion Gap 21 H, Creatinine 1.50 H 07/18/20 22:09: Phosphorus 1.4 L 07/19/20 01:01: Sodium 130 L, Chloride 108 H, Carbon Dioxide 13 L, Creatinine 1.36 H 07/19/20 03:23: Sodium 131 L, Chloride 108 H, Carbon Dioxide 16 L 07/19/20 03:23: WBC 11.1 H, MCH 31.2 H, Lymphocytes % 16.3 L, Monocytes % 12.0 H, Neutrophils # 7.9 H, Monocytes # 1.3 H 07/19/20 03:23: Phosphorus Less than 1.0 L Microbiology - Entire Visit 07/18/20 22:09 Venous blood - Right Hand Blood Culture - Preliminary Specimen has been received and culture in progress. No Growth to date. 07/18/20 22:04 Venous blood - Right Arm Blood Culture - Preliminary Specimen has been received and culture in progress. No Growth to date. Radiology Reviewed by me: Yes (Chest x-rayPA/lateralno infiltrate) EKG Reviewed by me: Yes (Sinus rhythm on telemetry) Hospitalist ROS - Review of Systems Respiratory: denies: cough, dry, shortness of breath, hemoptysis, SOB with excertion, pleuritic pain, sputum, wheezing, other Cardiovascular: denies: chest pain, palpitations, orthopnea, paroxysmal noc. dyspnea, edema, light headedness, other - Medication Medications: Active Medications Generic Name Dose Route Start Last Admin Trade Name Freq PRN Reason Stop Dose Admin Calcium Carbonate 1,000 mg 07/19/20 11:13 07/19/20 11:53 Calcium Carbonate 500 Mg Chewtab PO 1,000 mg Q4H PRN Administration Heartburn or Indigestion Folic Acid 1 mg 07/19/20 09:00 07/19/20 08:52 Folic Acid 1 Mg Tab PO 1 mg DAILY VISHAL Administration Potassium Chloride/Sodium Chloride 1,000 mls @ 125 mls/hr 07/19/20 07:45 07/19/20 14:28 1/2 Ns W/Kcl 20 Meq IV 1,000 mls .Q8H VISHAL Administration Insulin Human Regular 0 units 07/19/20 07:41 07/19/20 12:15 Insulin Regular 300 Units/3 Ml Vial SC 4 unit .MODERATE SLIDING SC PRN Administration Moderate Correctional Scale Multivitamins 1 tab 07/19/20 09:00 07/19/20 08:51 Multivit, Therapeutic 1 Tab PO 1 tab DAILY VISHAL Administration Pyridoxine HCl 50 mg 07/19/20 09:00 07/19/20 11:53 Pyridoxine 50 Mg (B6) Tab PO 50 mg DAILY VISHAL Administration Thiamine HCl 100 mg 07/19/20 09:00 07/19/20 08:51 Thiamine 100 Mg Tab PO 100 mg DAILY VISHAL Administration Hospitalist Exam Vitals: Vital Signs (12 hours) Temp Pulse Resp BP Pulse Ox 07/19/20 11:58 98.6 F 100 20 145/96 H 100 07/19/20 08:00 99.6 F 100 Weight Weight 137 lb 12.623 oz Most Recent Monitor Data Heart Rate from ECG 109 NIBP 142/87 NIBP BP-Mean 105 Respiration from ECG 31 SpO2 100 General Appearance: awake alert ENT: normocephalic atraumatic, no oropharyngeal lesions Neck: supple, symmetric, no JVD Heart: RRR, no gallops, no rubs, normal peripheral pulses Respiratory: no wheezes, no ronchi, normal chest expansion, no tachypnea Gastrointestinal: soft, non-distended, normal bowel sounds, no guarding, no rigidity Extremities: no cyanosis Neurological: no new deficit Musculoskeletal: normal tone, normal strength, no muscle wasting Psychiatric: normal affect, A&O x 3 Hosp A/P (1) Chronic alcoholism Code(s): F10.20 - ALCOHOL DEPENDENCE, UNCOMPLICATED Status: Acute (2) Hyperkalemia Code(s): E87.5 - HYPERKALEMIA Status: Acute (3) Diabetic ketoacidosis Code(s): E13.10 - OTH DIABETES MELLITUS WITH KETOACIDOSIS WITHOUT COMA Status: Acute (4) Noncompliance with medication regimen Code(s): Z91.14 - PATIENT'S OTHER NONCOMPLIANCE WITH MEDICATION REGIMEN Status: Acute (5) Polysubstance abuse Code(s): F19.10 - OTHER PSYCHOACTIVE SUBSTANCE ABUSE, UNCOMPLICATED Status: Acute (6) HUGO (acute kidney injury) Code(s): N17.9 - ACUTE KIDNEY FAILURE, UNSPECIFIED Status: Acute (7) Diabetes mellitus type 1 Status: Acute (8) GERD (gastroesophageal reflux disease) Code(s): K21.9 - GASTRO-ESOPHAGEAL REFLUX DISEASE WITHOUT ESOPHAGITIS Status: Acute - Plan 24-year-old male with diabetes mellitus type 1 presented to emergency room on 07/18 with nausea and vomiting. His work-up was consistent with diabetic ketoacidosis. His creatinine on admission was 2.36 with bicarbonate of less than 8 with potassium 6.8, sodium 123, lactic acid 3.6 and phosphorus of 1.9. He was admitted to the intermediate care unit and was started on insulin drip along with IV fluids per DKA protocol. His anion gap gradually improved with above treatment. Insulin drip was sounds transitioned to subcutaneous insulin. Patient has been out of his insulin due to financial reason. Insulin regimen will be converted to 70/30 due to financial reason. He was extensively counseled to be compliant with insulin regimen. His electrolytes were replaced as well. He was transferred out of intermediate care unit on 07/19. Patient had a portable chest x-ray in the emergency room that was concerning for left lobe consolidation. He was started on empiric antibiotics. Next morning he had PA and lateral x-ray that was negative for pneumonia. The density was due to left hemidiaphragm elevation. Antibiotics have been discontinued. Plan: Change IV insulin drip to subcutaneous Lantus. Will transition to NPH due to financial cost. Replace magnesium, phosphorus and potassium. Patient was advised to ambulate in the hallway. We will recheck labs in a.m. Discontinue DKA protocol. Discontinue antibiotics since pneumonia is ruled out. DKA was precipitated by medication noncompliance. Will add PPI as well as symptomatic treatment for heartburn. Patient was counseled on lifestyle modification as well as medication adherence
[2020-07-19] MEDS ORDERED: HumuLIN 70/30 (300 UNITS/3 ML VIAL) SC SCH (16:30)
[2020-07-20] MEDS: Insulin Regular 300 UNITS/3 ML VIAL SC PRN ×2 (05:43→13:12)
[2020-07-20] MEDS: 1/2 NS w/KCL 20 mEq 1,000 ML IV SCH (05:43)
[2020-07-20 06:37] LABS: Anion Gap 14 mmol/L (10-20); BUN (Urea Nitrogen) 4 mg/dL (8.9-20.6); Calc. Creatinine Clearance 127 mL/min (70-130); Calcium 8.6 mg/dL (7.8-10.44); Carbon Dioxide 22 mmol/L (22-29); Chloride 103 mmol/L (98-107); Glucose 141 mg/dL (70-105); Magnesium 1.7 mg/dL (1.6-2.6); Phosphorus 2.5 mg/dL (2.3-4.7); Potassium 3.5 mmol/L (3.5-5.1); Sodium 135 mmol/L (136-145)
[2020-07-20] MEDS ORDERED: HumuLIN 70/30 (300 UNITS/3 ML VIAL) SC SCH (07:30)
[2020-07-20] MEDS ORDERED: Insulin Glargine 20 UNITS in Pre-Filled Syringe 1 EACH SC SCH (09:00)
[2020-07-20] MEDS ORDERED: Magnesium 2 GM/50 ML 2 GM in Premix Bag 1 BAG IVPB SCH (09:45)
[2020-07-20] MEDS: Folic Acid 1 MG TAB PO SCH (10:28)
[2020-07-20] MEDS: pyridOXINE 50 MG (B6) TAB PO SCH (10:28)
[2020-07-20] MEDS: Multivit, Therapeutic 1 TAB PO SCH (10:28)
[2020-07-20] MEDS: Thiamine 100 MG TAB PO SCH (10:28)
[2020-07-20 12:12] VITALS: BP 143/84; TEMP 98.5
[2020-07-20] MEDS ORDERED: Potassium Chloride 20 MEQ TAB PO SCH (12:45)
--- NOTE | 2020-07-20 18:37 | PDOC.DS.DS ---
Provider Date of Admission: 07/18/20 19:35 Date of Discharge: 07/20/20 Admitting Provider: Gigi Gill MD Consultations: None Primary Care Physician: NO PCP PROVIDER Course Resuscitation Status: 07/18/20 20:48 Resuscitation Status Routine Resuscitation Status: FULL: Full Resuscitation Lab Results: 07/19/20 03:23 07/20/20 06:03 Abnormal Lab Results - Last 48 hrs 07/18/20 22:04: WBC 11.6 H, MCH 31.2 H, Neutrophils % 84.4 H, Lymphocytes % 7.4 L, Neutrophils # 9.8 H, Lymphocytes # 0.9 L, Monocytes # 0.9 H 07/18/20 22:09: Sodium 131 L, Carbon Dioxide 8 L*, Anion Gap 21 H, Creatinine 1.50 H 07/18/20 22:09: Phosphorus 1.4 L 07/19/20 01:01: Sodium 130 L, Chloride 108 H, Carbon Dioxide 13 L, Creatinine 1.36 H 07/19/20 03:23: Sodium 131 L, Chloride 108 H, Carbon Dioxide 16 L 07/19/20 03:23: WBC 11.1 H, MCH 31.2 H, Lymphocytes % 16.3 L, Monocytes % 12.0 H, Neutrophils # 7.9 H, Monocytes # 1.3 H 07/19/20 03:23: Phosphorus Less than 1.0 L 07/20/20 06:03: Sodium 135 L, BUN 4 L Microbiology - Entire Visit 07/18/20 22:09 Venous blood - Right Hand Blood Culture - Preliminary Specimen has been received and culture in progress. No Growth to date. 07/18/20 22:04 Venous blood - Right Arm Blood Culture - Preliminary Specimen has been received and culture in progress. No Growth to date. Vitals: Vital Signs (12 hours) Temp Pulse Resp BP Pulse Ox 07/20/20 11:58 98.5 F 81 16 143/84 H 99 07/20/20 08:00 99.0 F 88 16 130/86 Weight Weight 137 lb 12.623 oz Most Recent Monitor Data Heart Rate from ECG 109 NIBP 142/87 NIBP BP-Mean 105 Respiration from ECG 31 SpO2 100 Physical Exam: The patient was seen and examined on the day of discharge. Problem (1) Chronic alcoholism Code(s): F10.20 - ALCOHOL DEPENDENCE, UNCOMPLICATED Status: Acute (2) Hyperkalemia Code(s): E87.5 - HYPERKALEMIA Status: Acute (3) Diabetic ketoacidosis Code(s): E13.10 - OTH DIABETES MELLITUS WITH KETOACIDOSIS WITHOUT COMA Status: Acute (4) Noncompliance with medication regimen Code(s): Z91.14 - PATIENT'S OTHER NONCOMPLIANCE WITH MEDICATION REGIMEN Status: Acute (5) Polysubstance abuse Code(s): F19.10 - OTHER PSYCHOACTIVE SUBSTANCE ABUSE, UNCOMPLICATED Status: Acute (6) HUGO (acute kidney injury) Code(s): N17.9 - ACUTE KIDNEY FAILURE, UNSPECIFIED Status: Acute (7) Diabetes mellitus type 1 Status: Acute (8) GERD (gastroesophageal reflux disease) Code(s): K21.9 - GASTRO-ESOPHAGEAL REFLUX DISEASE WITHOUT ESOPHAGITIS Status: Acute Plan Prescriptions: Folic Acid [Folvite] 1 mg PO DAILY #30 tab HumuLIN 70/30 [HumuLIN 70/30 Vial] 15 units SC BID-AC #1 vial HumuLIN 70/30 [HumuLIN 70/30 Vial] 15 units SC BID-AC #1 vial Multivitamin [Multi-Vitamin Daily] 1 tablet PO DAILY #30 tablet Thiamine 100 mg PO DAILY #30 tab Home Medications: Medication Instructions Recorded Confirmed Type Folic Acid [Folvite] 1 mg PO DAILY #30 tab 07/20/20 Rx HumuLIN 70/30 [HumuLIN 70/30 Vial] 15 units SC BID-AC #1 vial 07/20/20 Rx HumuLIN 70/30 [HumuLIN 70/30 Vial] 15 units SC BID-AC #1 vial 07/20/20 Rx Multivitamin [Multi-Vitamin Daily] 1 tablet PO DAILY #30 tablet 07/20/20 Rx Thiamine 100 mg PO DAILY #30 tab 07/20/20 Rx Allergies: No Known Drug Allergies Allergy (Verified 07/14/17 22:09) Discharge Instructions:: Monitor blood sugars 3-4 times daily for 1 week and maintain a log Referrals: [facility] [MD Not on Staff] - 3 Days Disposition: HOME Quality CORE MEASURES:: N/A
== END 2020-07-20 13:59 | disposition home or self-care (01) | DRG 638 ==
LOC: ERS 16:44 → ERHOLD 19:35 → CCU 23:06 → SJJU 07-19 09:43 → SURG B 07-19 10:20 → SJJU 07-19 10:21
PROVIDERS: ADMIT Student in an Organized Health Care Education/Training Program; ATTEND Internal Medicine
DX: E10.10 Type 1 diabetes mellitus with ketoacidosis without coma (principal); N17.9 Acute kidney failure, unspecified; E87.5 Hyperkalemia; K21.9 Gastro-esophageal reflux disease without esophagitis; F10.20 Alcohol dependence, uncomplicated; F14.10 Cocaine abuse, uncomplicated; Z79.4 Long term (current) use of insulin; Z91.14 Patient's other noncompliance with medication regimen; Z28.21 Immunization not carried out because of patient refusal
CPT/HCPCS: 36415; 36416; 71046; 80048; 80053; 83735; 84100; 84311; 85025; 87040; 93005; 96365; 96366; J0456; J0696; J1650; J1815; J3475; J3480; J3490; J7050

== ENCOUNTER 2023-11-25 09:23 | Inpatient (IN) | payer SELFPAY ==
[2023-11-25] MEDS ORDERED: NS 0.9% w/ 20 MEQ KCL 0 ML ONE (11:03)
[2023-11-25] MEDS ORDERED: INSULIN REGULAR IN 0.9 % NACL 100 UNITS/100 ML BAG ONE (11:09)
[2023-11-25 11:10] LABS: Anion Gap 20 mmol/L (10-20); BUN (Urea Nitrogen) 19 mg/dL (8.9-20.6); Calc. Creatinine Clearance 0 mL/min (70-130); Carbon Dioxide 10 mmol/L (22-29); Chloride 108 mmol/L (98-107); Estimated GFR 110; Glucose 214 mg/dL (70-105); Potassium 4.3 mmol/L (3.5-5.1); Sodium 134 mmol/L (136-145)
[2023-11-25] MEDS ORDERED: D5 1/2 NS w/20 mEq KCL 1,000 ML ONE (11:16)
[2023-11-25] MEDS ORDERED: Acetaminophen 650 MG Suppository PR PRN (11:24)
[2023-11-25] MEDS ORDERED: Ondansetron ODT 4 MG TAB PO PRN (11:24)
[2023-11-25] MEDS ORDERED: Ondansetron PF 4 MG/2 ML Vial IVP PRN (11:24)
[2023-11-25] MEDS ORDERED: Acetaminophen 325 MG TAB PO PRN (11:24)
[2023-11-25] MEDS ORDERED: Dextrose 5 %-0.45 % NaCl 1,000 ML IV PRN (11:25)
[2023-11-25] MEDS ORDERED: Dextrose 50% Abboject 50 ML SYRINGE SLOW IVP PRN (11:25)
[2023-11-25] MEDS ORDERED: Electrolyte Replacement Protocol 1 EACH IVPB SCH (11:25)
[2023-11-25] MEDS ORDERED: Sodium Chloride 0.9% 1,000 ML IV PRN ×4 (11:25)
[2023-11-25] MEDS ORDERED: NS 0.9% w/ 20 MEQ KCL 1,000 ML IV PRN ×2 (11:25)
[2023-11-25] MEDS ORDERED: Insulin Reg, Human 100 UNITS in Sodium Chloride 0.9% 100 ML IVPB SCH (11:30)
[2023-11-25 14:03] LABS: Phosphorus 2.8 mg/dL (2.3-4.7)
[2023-11-25 14:06] LABS: Anion Gap 17 mmol/L (10-20); BUN (Urea Nitrogen) 16 mg/dL (8.9-20.6); Calc. Creatinine Clearance 0 mL/min (70-130); Carbon Dioxide 12 mmol/L (22-29); Chloride 109 mmol/L (98-107); Estimated GFR 106; Glucose 212 mg/dL (70-105); Magnesium 1.8 mg/dL (1.6-2.6); Potassium 4.4 mmol/L (3.5-5.1); Sodium 134 mmol/L (136-145)
[2023-11-25 14:30] VITALS: BMI 22.1
[2023-11-25] MEDS: D5 1/2 NS w/20 mEq KCL 1,000 ML IV PRN (15:11)
[2023-11-25] MEDS: Magnesium 2 GM/50 ML(in water) 2 GM in Premix 1 BAG IVPB SCH (19:00)
[2023-11-25 19:07] LABS: Anion Gap 9 mmol/L (10-20); BUN (Urea Nitrogen) 13 mg/dL (8.9-20.6); Calc. Creatinine Clearance 104 mL/min (70-130); Carbon Dioxide 18 mmol/L (22-29); Chloride 111 mmol/L (98-107); Estimated GFR 115; Glucose 145 mg/dL (70-105); Potassium 3.5 mmol/L (3.5-5.1); Sodium 134 mmol/L (136-145)
[2023-11-25] MEDS ORDERED: HumaLOG 300 UNITS/3 ML VIAL SC PRN ×2 (19:45)
[2023-11-25] MEDS: Insulin Glargine 30 UNITS/0.3 ML VIAL SC SCH (20:00)
[2023-11-25 23:08] LABS: Anion Gap 13 mmol/L (10-20); BUN (Urea Nitrogen) 11 mg/dL (8.9-20.6); Calc. Creatinine Clearance 115 mL/min (70-130); Carbon Dioxide 15 mmol/L (22-29); Chloride 111 mmol/L (98-107); Estimated GFR 122; Glucose 112 mg/dL (70-105); Potassium 3.6 mmol/L (3.5-5.1); Sodium 135 mmol/L (136-145)
[2023-11-26 05:40] LABS: #Basophils Less than 0.03 10x3/uL (0.0-0.2); %Basophils 0.3 % (0.0-1.0); %Eosinophils 2.4 % (0.0-10.0); %Lymphocytes 42.3 % (21.0-51.0); %Neutrophils 44.8 % (42.0-75.0); Hematocrit 38.6 % (42.0-52.0); Hemoglobin 13.9 g/dL (14.0-18.0); Mean Corpuscular Hemoglobin 32.4 pg (27.0-31.0); Mean Platelet Volume 11.7 fL (7.4-10.4); Platelet Count 218 10x3/uL (130-400); Red Blood Cell (RBC) Count 4.29 mill/uL (4.70-6.10)
[2023-11-26 05:52] LABS: Anion Gap 11 mmol/L (10-20); BUN (Urea Nitrogen) 8 mg/dL (8.9-20.6); Calc. Creatinine Clearance 133 mL/min (70-130); Calcium 8.1 mg/dL (7.8-10.44); Carbon Dioxide 19 mmol/L (22-29); Chloride 110 mmol/L (98-107); Estimated GFR 127; Glucose 51 mg/dL (70-105); Potassium 3.2 mmol/L (3.5-5.1); Sodium 137 mmol/L (136-145)
[2023-11-26] MEDS: Potassium Chloride 20 MEQ TAB PO SCH (08:08)
[2023-11-26] MEDS: Enoxaparin 40 MG (0.4 mL) SYRINGE SC SCH (08:08)
[2023-11-26 12:37] VITALS: BP 132/79; TEMP 97.5
== END 2023-11-26 13:55 | disposition home or self-care (01) | DRG 638 ==
LOC: ERS 09:23 → SUATTDRO 09:23 → ERHOLD 10:59 → IMCU/EMU 14:19 → T4-B 11-26 01:30
PROVIDERS: ADMIT Family Medicine; ATTEND Internal Medicine
DX: E10.10 Type 1 diabetes mellitus with ketoacidosis without coma (principal); N17.9 Acute kidney failure, unspecified; Z79.4 Long term (current) use of insulin
CPT/HCPCS: 36415; 36416; 80048; 83735; 84100; 85025; 99285; J1650; J1815; J3475; J3480